=== PATIENT | male | born 1960 | race Caucasian/White ===

== ENCOUNTER → 2024-01-10 09:49 | Outpatient (REF) | payer OTHER, SELFPAY ==
[2024-01-10 11:02] LABS: INR 2.36; PT 26.1 Sec (11.4-14.6)
== END ==
LOC: REG 09:49
PROVIDERS: ATTENDING PHYSICIAN Internal Medicine
DX: Z79.01 Long term (current) use of anticoagulants (principal); Z95.2 Presence of prosthetic heart valve
CPT/HCPCS: 36415; 85610

== ENCOUNTER → 2024-03-27 10:32 | Outpatient (REF) | payer OTHER, SELFPAY ==
[2024-03-27 11:35] LABS: INR 2.93
== END ==
LOC: REG 10:32
PROVIDERS: ATTENDING PHYSICIAN Internal Medicine
DX: Z79.01 Long term (current) use of anticoagulants (principal)
CPT/HCPCS: 36415; 85610

== ENCOUNTER → 2024-06-24 09:26 | Outpatient (REF) | payer OTHER, SELFPAY ==
[2024-06-24 10:35] LABS: INR 2.76; PT 29.1 Sec (11.4-14.6)
== END ==
LOC: REG 09:26
PROVIDERS: ATTENDING PHYSICIAN Internal Medicine
DX: Z79.01 Long term (current) use of anticoagulants (principal)
CPT/HCPCS: 36415; 85610

== ENCOUNTER → 2025-06-06 07:24 | Outpatient (REF) | payer OTHER, SELFPAY | LOC: RCS 07:24 | PROVIDERS: ATTENDING PHYSICIAN Internal Medicine Cardiovascular Disease; FAMILY PHYSICIAN Internal Medicine | DX: Z95.2 Presence of prosthetic heart valve (principal); R06.09 Other forms of dyspnea; R07.9 Chest pain, unspecified | CPT/HCPCS: 93017 ==

== ENCOUNTER → 2025-06-10 09:59 | Outpatient (REF) | payer OTHER, SELFPAY | LOC: RCS 09:59 | PROVIDERS: ATTENDING PHYSICIAN Internal Medicine Cardiovascular Disease; FAMILY PHYSICIAN Internal Medicine | DX: R00.1 Bradycardia, unspecified (principal) | CPT/HCPCS: 93306 ==

== ENCOUNTER → 2025-06-24 11:55 | Outpatient (REF) | payer OTHER, SELFPAY | LOC: HWRCS 11:55 | PROVIDERS: ATTENDING PHYSICIAN Internal Medicine Cardiovascular Disease; FAMILY PHYSICIAN Internal Medicine | DX: I45.4 Nonspecific intraventricular block (principal); R07.9 Chest pain, unspecified; R06.09 Other forms of dyspnea | CPT/HCPCS: 78452; 93017; A9500; J2785 ==